=== PATIENT | female | born 1950 ===

== ENCOUNTER 2024-10-22 13:11 | Outpatient (CLI) | payer OTHER ==
[~2024-10-22 13:11] MED LIST: ADVIL LIQUI-GE200 MG; COZAAR100 MG
== END 2024-10-22 13:19 | disposition home or self-care (01) ==
LOC: SONOGRAMA 13:11
PROVIDERS: ATTEND Internal Medicine
DX: N18.9 Chronic kidney disease, unspecified (principal)